=== PATIENT | male | born 1990 | race African-American/Black ===

== ENCOUNTER 2016-08-06 03:52 | Emergency (ER) | payer BC ==
[~2016-08-06] VITALS: Ht 188 cm; Wt 88.5 kg
[2016-08-06 04:03] VITALS: BP 117/71; PULSE 72; RESP 16; TEMP 98.1; O2SAT 97
--- NOTE | 2016-08-06 04:05 | NUR ---
Patient to ER bed 06 to gown for evaluation. Side rails up.
--- NOTE | 2016-08-06 04:12 | NUR ---
pt AAOx4. c/o sore throat x1 day increasing in pain. pain scale 10/10. pt taking theraflu but symptoms remain unchanged. MD walters.
--- NOTE | 2016-08-06 04:25 | NUR ---
ER Dr. Curran at bedside examining patient.
[2016-08-06 04:40] VITALS: BP 122/79; PULSE 76; RESP 16; TEMP 98.4; O2SAT 98
--- NOTE | 2016-08-06 04:40 | NUR ---
Patient given written and verbal discharge instructions and verbalizes understanding. ER MD discussed with patient the results and treatment provided. Patient in stable condition. ID arm band removed. Rx of augmentin given. Patient educated on pain management and to follow up with PMD. Pain Scale 2/10. Opportunity for questions provided and answered.
== END 2016-08-06 04:40 | disposition home or self-care (01) ==
LOC: SED 03:52
DX: J02.9 Acute pharyngitis, unspecified (principal)
CPT/HCPCS: 99283